=== PATIENT | female | born 1935 | race Caucasian/White ===

== ENCOUNTER 2016-06-01 13:00 | Observation (INO) | payer MEDICARE ==
[2016-06-01 13:30] VITALS: BMI 31.8
[2016-06-01 13:43] LABS: AUTOMATED BASOPHIL 0.3 % (0-2); AUTOMATED LYMPH 12.3 % (17-44); AUTOMATED MONOCYTE 8.6 % (3-10); AUTOMATED NEUTROPHIL 78.8 % (45-76); MPV 9.7 fL (7.4-10.4)
[2016-06-01 13:53] LABS: ETOH-MGDL < 10 mg/dL
[2016-06-01 13:54] LABS: BLOOD UREA NITROGEN 31 MG/DL (7-17); CALCIUM 9.5 MG/DL (8.4-10.2); CALCULATED OSMOLALITY 266 MOs/Kg (270-290); CHLORIDE 98 mEq/L (98-107); GLUCOSE 118 MG/DL (70-99); SODIUM LEVEL 134 mEq/L (137-146); TOTAL PROTEIN 7.3 G/DL (6.3-8.2)
--- NOTE | 2016-06-01 13:57 | EDPRACDOC ---
- General Information Chief Complaint: Generalized Weakness Stated Complaint: ALTERED MENTAL STATUS Time Seen by Provider: 06/01/16 13:14 Information Source: Patient Mode of Arrival: Ambulance Home Medications: Home Medications Ascorbic Acid [Vitamin C] 1,000 mg PO DAILY 06/01/16 Benztropine Unk 0 mg PO .SEE COMMENTS 06/01/16 Haloperidol Unk 0 mg PO .SEE COMMENTS 06/01/16 Magnesium Oxide [Magnesium] 250 mg PO DAILY 06/01/16 Multivitamin [One Daily] 1 tab PO DAILY 06/01/16 Vitamin A 8,000 unit PO DAILY 06/01/16 Vitamin B Complex 1 tab PO DAILY 06/01/16 Allergies/Adverse Reactions: Allergies Allergy/AdvReac Type Severity Reaction Status Date / Time No Known Allergies Allergy Verified 06/01/16 13:27 - History of Present Illness Onset: THIS AM Reason for Seeking Treatment: 911 Call Presents With: Reports: Unclear Thinking, Bizarre Behavior (SITTING OUTSIDE NAKED (IN THE COLD) AND SINGING. NEIGHBORS CALLED 911. PT SINGING [facility]. ). Denies: Suicidal Ideation, Homicidal Ideation Expresses: Reports: None Suicidal Plan: Reports: None Relevant History: Reports: Other (PT REPORTS NO PSYCHIATRIC HISTORY, HOWEVER, [employer] [facility] HAS FOUND RX LAST YEAR FOR HALDOL AND BENTROPINE) Other History: CURRENTLY FASTING AND PRAYING. SHE RECITES VERBATIM MULTIPLE SCRIPTURES. 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 Denies: Depression Systemic History: Denies: Cancer Surgical History: Reports: Cholecystectomy - Social Medical History Smoking Status: Former smoker EDM Review of Systems - Review of Systems ROS Negative Except as Marked: Yes All systems reviewed and were negative except as marked - Physical Exam Constitutional: Alert (Awake), No apparent distress Oriented to: Time, Person, Place Last recorded Vital Signs: Last Vital Signs Temp 97.5 F 06/01/16 13:27 Pulse 83 06/01/16 13:27 Resp 18 06/01/16 13:27 BP 170/78 06/01/16 13:27 Pulse Ox 100 06/01/16 13:27 Oxygen Pulse Oxygen Saturation 100 O2 Device Room Air Oxygen Flow Rate Fraction of Inspired Oxygen ( FIO2) - HEENT Head: Normal ( normocephalic) Eye Exam: Normal (PERRL, EOMI, Sclera white) Oropharynx: Normal (Pharynx:Moist without exudate,Gums-no swelling) Tympanic Membrane: Normal ENT EAC: Normal TMJ: Normal Nose: No Symptoms Reported (septum midline) Neck: Normal (FROM, trachea at midline) - Respiratory/Cardiovascular Respiratory: Normal - CTA (BBS clear to auscultation without adventitious sounds ) Cardiovascular: Normal (RRR without murmur, gallop or rub) - GI Auscultation: Normal (NABS) Palpation: Normal (Soft,No rebound or guarding, non distended) Tenderness: Non tender Hunter's Sign: Negative - Musculoskeletal Back: Normal (Non-Tender) Extremities: Normal (Normal tone, Pulses 2+ No cyanosis or edema, FROM) - Integumentary Skin: Normal, Warm, Dry Lymphatics: Normal (no adenopathy) - Neurologic Memory Impaired: Normal Motor Function: Normal (Normal tone, Pulses 2+ No cyanosis or edema, FROM) Cranial Nerve: Normal (CN II-X11 intact sensation, strength 5/5) Cerebellar: Normal Mood Description: Normal Thought: Delusions, Flight of Ideas, Paranoia, Rambling Conversation Perception: Normal - Results 06/01/16 13:30 06/01/16 13:30 WBC 11.5 xk/uL (3.8-10.8) H 06/01/16 13:30 RBC 4.51 xM/uL (4.20-5.40) 06/01/16 13:30 Hgb 14.1 g/dL (12.0-16.0) 06/01/16 13:30 Hct 42.6 % (36-47) 06/01/16 13:30 MCV 95 fL (81-99) 06/01/16 13:30 MCH 31.3 pg (27-32) 06/01/16 13:30 MCHC 33.1 g/dl (33-36) 06/01/16 13:30 RDW 12.7 % (11.5-14.5) 06/01/16 13:30 Plt Count 195 xk/uL (130-400) 06/01/16 13:30 MPV 9.7 fL (7.4-10.4) 06/01/16 13:30 Neut % (Auto) 78.8 % (45-76) H 06/01/16 13:30 Lymph % (Auto) 12.3 % (17-44) L 06/01/16 13:30 [place] % (Auto) 8.6 % (3-10) 06/01/16 13:30 Eos % (Auto) 0.0 % (0-5) 06/01/16 13:30 Baso % (Auto) 0.3 % (0-2) 06/01/16 13:30 Absolute Neuts (auto) 8.97 xk/uL (1.7-8.2) H 06/01/16 13:30 Absolute Lymphs (auto) 1.38 xk/uL (0.65-4.75) 06/01/16 13:30 Lab Results 06/01/16 13:30 WBC 11.5 H RBC 4.51 Hgb 14.1 Hct 42.6 MCV 95 MCH 31.3 MCHC 33.1 RDW 12.7 Plt Count 195 MPV 9.7 Neut % (Auto) 78.8 H Lymph % (Auto) 12.3 L [place] % (Auto) 8.6 Eos % (Auto) 0.0 Baso % (Auto) 0.3 Absolute Neuts (auto) 8.97 H Absolute Lymphs (auto) 1.38 - EKG EKG #1 EKG Time: 13:36 -: Yes EKG interpreted by me Rate: bpm: 74 [place]: Normal Rhythm: NSR, Afib Block: None Hypertrophy: LAE ST: Nonsp Comments: NO COMPARISONS - Diagnostic Imaging Head Image interpreted by: Radiologist Patient Name: KYRA RUDD LOC: ED : 1935 AGE: 80 Order Date:06/01/16 Date of Service: Report # [id number] Ord Physician: Constanza Ulloa MD Exam # [id number] Emergency Physician: Constanza Ulloa MD Exam(s): [id number] CT/CT HEAD W/O CM CLINICAL DATA: Altered mental status. EXAM: CT HEAD WITHOUT CONTRAST TECHNIQUE: Contiguous axial images were obtained from the base of the skull through the vertex without intravenous contrast. COMPARISON: None. FINDINGS: Skull and Sinuses:Negative for fracture or destructive process. The visualized mastoids, middle ears, and imaged paranasal sinuses are clear. Visualized orbits: Negative. Brain: No evidence of acute infarction, hemorrhage, hydrocephalus, or mass lesion/mass effect. Age congruent generalized cerebral volume loss. Patchy low-density in the cerebral white matter compatible with small-vessel ischemic disease, typical for age. IMPRESSION: No acute finding. Age congruent senescent changes. Electronically Signed By: Nathaniel Sen M.D. On: 06/01/2016 14:15 Electronically Signed By: Tomer Sen MD Electronically Signed Date/Time: 7 Dictate Date/Time: 06/01/16 1412 Technologist: Yesi Lehman Transcribed By: Margarito Transcribed Date/Time: 06/01/16 1415 Chest Image interpreted by: Radiologist Patient Name: KYRA RUDD LOC: ED : 1935 AGE: 80 Order Date:06/01/16 Date of Service: Report # [id number] Ord Physician: Paloma Esteves Exam # [id number] Emergency Physician: Constanza Ulloa MD Exam(s): [id number] RAD/DG CHEST PORTABLE CLINICAL DATA: History of hypertension. Acute mental status change. EXAM: PORTABLE CHEST 1 VIEW COMPARISON: None. FINDINGS: The heart size and mediastinal contours are within normal limits. Both lungs are clear. The visualized skeletal structures are unremarkable. IMPRESSION: No active disease. Electronically Signed By: Mahesh Campbell III, M.D On: 06/01/2016 15:00 Electronically Signed By: Mahesh Campbell MD Electronically Signed Date/Time: 502 Dictate Date/Time: 06/01/16 1459 Technologist: Carlton Valadez Transcribed By: Margarito Transcribed Date/Time: 06/01/16 1500 - Departure Disposition: Admit to Final Diagnosis: Acute psychosis, Dehydration Instructions: Weakness (General) Education/Counseling Given To: Patient Education/Counseling Given Regarding: Diagnosis, Treatment, Prognosis Referrals: None,No Provider [Primary Care Provider] - One Week
--- NOTE | 2016-06-01 14:17 | DIRPT ---
CLINICAL DATA: Altered mental status. EXAM: CT HEAD WITHOUT CONTRAST TECHNIQUE: Contiguous axial images were obtained from the base of the skull through the vertex without intravenous contrast. COMPARISON: None. FINDINGS: Skull and Sinuses:Negative for fracture or destructive process. The visualized mastoids, middle ears, and imaged paranasal sinuses are clear. Visualized orbits: Negative. Brain: No evidence of acute infarction, hemorrhage, hydrocephalus, or mass lesion/mass effect. Age congruent generalized cerebral volume loss. Patchy low-density in the cerebral white matter compatible with small-vessel ischemic disease, typical for age. IMPRESSION: No acute finding. Age congruent senescent changes. Electronically Signed By: Nathaniel Sen M.D. On: 06/01/2016 14:15
[2016-06-01 14:25] LABS: hTSH 3.39 uIU/mL (0.5-4.67)
--- NOTE | 2016-06-01 15:02 | DIRPT ---
CLINICAL DATA: History of hypertension. Acute mental status change. EXAM: PORTABLE CHEST 1 VIEW COMPARISON: None. FINDINGS: The heart size and mediastinal contours are within normal limits. Both lungs are clear. The visualized skeletal structures are unremarkable. IMPRESSION: No active disease. Electronically Signed By: Mahesh Campbell III, M.D On: 06/01/2016 15:00
[2016-06-01 15:44] LABS: URINE OCCULT BLOOD 1+ (NEG/TRACE)
[2016-06-01 15:45] LABS: LEUKOCYTES/URINE NEG (NEGATIVE); NITRITE/URINE NEG (NEGATIVE)
[2016-06-01 15:51] LABS: RBC/URINE 0-2 (0-5)
[2016-06-01 15:54] LABS: ALL NEG? YES; MDMA* NEG (NEGATIVE); METHAMPHETAMINES NEG (NEGATIVE); OXYCODONE NEG (NEGATIVE)
[2016-06-01] MEDS ORDERED: NS 1,000 ML IV ONE (16:54)
[2016-06-01] MEDS ORDERED: MAGNESIUM HYDROXIDE 30 ML BOTTLE PO PRN (19:47)
[2016-06-01] MEDS ORDERED: ONDANSETRON HCL 4 MG ODT TAB PO PRN (19:47)
[2016-06-01] MEDS ORDERED: Docusate Sodium 100 MG CAP PO PRN (19:47)
[2016-06-01] MEDS ORDERED: LORAZEPAM 1 MG TAB PO PRN (19:47)
[2016-06-01] MEDS ORDERED: ZOLPIDEM TARTRATE 5 MG TAB PO PRN (19:47)
[2016-06-01] MEDS ORDERED: ACETAMINOPHEN 325 MG/TAB TABLET PO PRN (19:47)
[2016-06-01] MEDS ORDERED: GUAIFENESIN 200 MG/10 ML UDC PO PRN (19:47)
[2016-06-01] MEDS ORDERED: NICOTINE 21 MG PATCH TOP SCH (20:00)
[2016-06-01] MEDS ORDERED: HALOPERIDOL 5 MG/ML VIAL IM ONE (20:14)
[2016-06-01] MEDS ORDERED: LORAZEPAM 2 MG/ML VIAL IM ONE (22:49)
[2016-06-01] MEDS: HALOPERIDOL 0.5 MG TAB PO SCH (23:59)
[2016-06-02] MEDS ORDERED: DIPHENHYDRAMINE 50 MG/ML VIAL IM ONE (00:20)
[2016-06-02] MEDS ORDERED: LORAZEPAM 2 MG/ML VIAL IM ONE (01:26)
--- NOTE | 2016-06-02 08:43 | EDTUNOTE ---
- SOAP Note Patient Problems: Active Problems Acute psychosis (Acute) F23 Dehydration (Acute) E86.0 Time Seen By Provider: 08:41 SOAP Note: S:Pt sleeping O:VS nml A:Sleeping peacefully P:Will continue to monitor pending placement by SW S: Admitted for AMS, psychosis O: VS nml. Sleeping peacefully. A:Psychosis P: Cont meds for further stabilization and will continue until proper placement can be determined.
[2016-06-02] MEDS: HALOPERIDOL 0.5 MG TAB PO SCH ×2 (10:34→12:41)
--- NOTE | 2016-06-02 15:48 | TUDEPART ---
Disposition: Trans. to Other Hospital ([place]) Education/Counseling Given To: Patient Education/Counseling Given Regarding: Diagnosis, Treatment Decision to Transfer Time: 15:47 <Zoya Hayden - Last Filed: 06/02/16 15:47> Discussion of OBS Stay: General: Pleasant female No acute distress. Neuro: Alert Oriented, calm and cooperative HEENT: Normocephalic atraumatic. Sclerae nonicteric. Extraocular movements intact. Oral mucosa pink and moist. Neck: Supple. Nontender. Good range of motion. No masses. Trachea is midline. No cervical adenopathy. Lungs: Clear to auscultation. No rhonchi or wheezing. Heart: Regular rate and rhythm. No murmur. Abdomen: Soft, nontender, nondistended. No hepatosplenomegaly. No abdominal wall defects or masses. No guarding or rebound. Extremities: no cyanosis clubbing or edema. No palpable deformities. Skin: Warm and dry, no rashes No changes in clinical status or new information from previous documentation. Vital Signs: Temp:98.0 F HR: 73 BP: 141/67 RR: 18 Pox: 100%. Continue with current plan. Yes I personally saw and evaluated the patient. <Cornelius Schilling - Last Filed: 06/02/16 16:31> Condition: Stable Instructions: Weakness (General) Follow-up / Referrals: None,No Provider [Primary Care Provider] - One Week - Physical Exam Constitutional: Alert (Awake), No apparent distress Oriented to: Time, Person, Place Last recorded Vital Signs: Last Vital Signs Temp 98.0 F 06/02/16 12:00 Pulse 73 06/02/16 12:00 Resp 18 06/02/16 12:00 BP 141/67 06/02/16 12:00 Pulse Ox 100 06/02/16 12:00 Oxygen Pulse Oxygen Saturation 100 O2 Device Room Air Oxygen Flow Rate Fraction of Inspired Oxygen ( FIO2) - HEENT Head: Normal ( normocephalic) Eye Exam: Normal (PERRL, EOMI, Sclera white) Oropharynx: Normal (Pharynx:Moist without exudate,Gums-no swelling) Tympanic Membrane: Normal ENT EAC: Normal TMJ: Normal Nose: No Symptoms Reported (septum midline) - Respiratory/Cardiovascular Respiratory: Normal - CTA (BBS clear to auscultation without adventitious sounds ) Cardiovascular: Normal (RRR without murmur, gallop or rub) - GI Auscultation: Normal (NABS) Palpation: Normal (Soft,No rebound or guarding, non distended) Tenderness: Non tender Hunter's Sign: Negative - Musculoskeletal Back: Normal (Non-Tender) Extremities: Normal (Normal tone, Pulses 2+ No cyanosis or edema, FROM) - Integumentary Skin: Normal, Warm, Dry Lymphatics: Normal (no adenopathy) - Neurologic Memory Impaired: Normal Motor Function: Normal (Normal tone, Pulses 2+ No cyanosis or edema, FROM) Cranial Nerve: Normal (CN II-X11 intact sensation, strength 5/5) Cerebellar: Normal Mood Description: Normal Thought: Delusions, Flight of Ideas, Paranoia, Rambling Conversation Perception: Normal <Zoya Hayden - Last Filed: 06/02/16 15:47> - Physical Exam Last recorded Vital Signs: Last Vital Signs Temp 98.0 F 06/02/16 12:00 Pulse 73 06/02/16 12:00 Resp 18 06/02/16 12:00 BP 141/67 06/02/16 12:00 Pulse Ox 100 06/02/16 12:00 Oxygen Pulse Oxygen Saturation 100 O2 Device Room Air Oxygen Flow Rate Fraction of Inspired Oxygen ( FIO2) <Cornelius Schilling - Last Filed: 06/02/16 16:31>
[2016-06-02 16:51] VITALS: BP 132/66; PULSE 83; TEMP 98.3
== END 2016-06-02 16:25 ==
LOC: ED 13:00 → EDINP 16:55 → TUOBSINP 19:28
PROVIDERS: ADMIT Emergency Medicine; ATTEND Emergency Medicine
DX: F23 Brief psychotic disorder (principal); E86.0 Dehydration; F31.9 Bipolar disorder, unspecified; H54.42 Blindness, left eye, normal vision right eye; Z79.899 Other long term (current) drug therapy; R41.82 Altered mental status, unspecified
CPT/HCPCS: 36415; 70450; 71010; 80053; 80307; 81001; 84443; 85025; 93005; 96360; 96372; 99285; A9270; G0378; J1200; J1630; J2060; J3490